=== PATIENT | female | born 1995 | race Caucasian/White ===

== ENCOUNTER 2018-01-26 21:36 | Inpatient (IN) | payer BC ==
[2018-01-26] MEDS ORDERED: Sodium Chloride 0.9% 10 ML Syringe FLUSH PRN (22:28)
[2018-01-26] MEDS ORDERED: Nalbuphine 20 MG/ML 1 ML Syringe IVPUSH PRN (22:28)
[2018-01-26] MEDS ORDERED: Ondansetron 4 MG/2 ML SDV IVPUSH PRN (22:28)
[2018-01-26] MEDS ORDERED: Oxytocin/Lactated Ringers 10 UNIT/1,000 ML BAG IV SCH (22:30)
[2018-01-26] MEDS ORDERED: Lactated Ringers 1,000 ML IV SCH (22:30)
--- NOTE | 2018-01-27 07:55 | PCM.SN ---
- Free Text/Narrative Note: Reina is a 22-year-old 1 now para 1001 white female who is admitted on 01/26/2018 at 40-6/7 weeks gestational age with an SYLVAIN of 01/21/2018. She is admitted in active labor. She had progressed from 3 cm to 4 cm, was salma every 4 minutes and was very uncomfortable. She progressed to approximate 57 m and had artificial rupture membranes with resultant clear amniotic fluid. It then went on to progress to complete cervical dilation by approximately 0640 hrs. on 01/27/2018. She delivered a viable, knox, 3670 g (8 pounds 1.5 ounce) male infant with Apgars of 8 and 9 in a right occiput anterior position over an intact perineum. She is no analgesia during the course of the labor. Stitches were required. Estimated blood loss was 100 mL. The baby was placed on mom's abdomen. The cord was clamped and then was cut by the baby's father Kai. Cord blood was obtained. The umbilical cord had 3 blood vessels. The placenta delivered at 0717 hrs. and a Rosales presentation, appeared intact and complete and was discarded per patient preference. She plans to breast- feed. Condition: Good
[2018-01-27] MEDS ORDERED: Acetaminophen 325 MG Tab PO PRN (07:58)
[2018-01-27] MEDS ORDERED: Benzocaine/Menthol 20%-0.5% Spray 56 GM Canister TOP PRN (07:58)
[2018-01-27] MEDS ORDERED: Witch Hazel Medicated Pads 100/Jar TOP PRN (07:58)
[2018-01-27] MEDS ORDERED: Docusate Sodium 100 MG Cap PO PRN (07:58)
[2018-01-27] MEDS ORDERED: Lanolin 100% Cream 7 GM Tube TOP PRN (07:58)
--- NOTE | 2018-01-27 08:02 | HP ---
DATE OF ADMISSION: 01/26/2018 ADMISSION DIAGNOSIS: 40 and 5/7th week intrauterine , active labor. HISTORY OF PRESENT ILLNESS: The patient is a 22-year-old, 1, para 0, white female, who is admitted with contractions occurring every 3 to 5 minutes, progressive in nature and becoming moderately strong. Her SYLVAIN is 01/21/2018 based upon a certain last menstrual period which started on 04/16/2017 and is supported by 3 ultrasounds. She is presently at 40 and 5/7th weeks' gestational age. She has been salma a good part of the day and has changed her cervix to a dilation of 4 cm which is increased from 3 cm on last evaluation in clinic. 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 Last menstrual period started on 04/16/2017, was definite in timing and occurrence. The patient has cycles q.30 days. Had menarche at age 11. She was using no control at the time of conception. The patient's is supported by 3 ultrasounds done on 07/16/2017, 09/03/2017, and 10/05/2017. The patient had a cardiac echogenic focus noted on ultrasound. The patient was offered Woodruff testing, but declined. She has had a relatively unremarkable . She has been centering patient. She plans to breastfeed. Admit for depression screen on 09/03/2017 was 0/30. She is group B strep negative. She was found to have a low vitamin D level and was supplemented with vitamin D. Tdap was administered on 11/11/2017. The first visit was on 07/16/2017 at 13 weeks' gestational age. She was seen on a regular basis. Her weight gain was from 144.8 pounds up to 164.4 pounds with pre-gravid weight of 140 pounds, giving a weight gain of 124 pounds. Her vital signs were stable throughout the course. Her fundal height growth was appropriate. Last evaluation in clinic showed her cervix to be 3 cm, 95% effaced, very soft, -2, anterior. LABORATORY DATA: laboratory testing shows her blood to be O positive with a negative antibody screen. Her initial labs showed hemoglobin of 13.9 and platelet count of 219. She is rubella immune. RPR is nonreactive. Urine culture was negative. Hepatitis B and HIV assays were both negative. Chlamydia and gonorrhea assays both negative. Her 1-hour GTT was 100. Her second trimester hemoglobin was 13.0 and platelets were 201,000. Group B strep screen was negative. ALLERGIES: Negative. CURRENT MEDICATIONS: vitamins 1 daily. PAST MEDICAL HISTORY: Unremarkable. PAST SURGICAL HISTORY: Unremarkable. FAMILY HISTORY: Mother is alive and well with some depression. Father is alive and well. The patient has 3 sisters who are alive and in generally good health, 1 with labor. Five brothers, alive and well. Maternal grandmother is alive with history of stroke. Maternal grandfather secondary to an [place]. Paternal grandmother secondary to an aneurysm. Paternal grandfather secondary to dementia. There is no bleeding, clotting, anesthesia, or - related problems in the family other than a sister who has Factor V Leiden mutation. SOCIAL HISTORY: The patient is . is Christopher Desilets. 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 She lives in [place], [place]. She does not use any significant amounts of alcohol, drugs, or tobacco. REVIEW OF SYSTEMS: GENERAL: The patient is having contractions, has reported good activity, otherwise has no major concerns. SKIN: Negative. LUNGS/RESPIRATORY: No infectious symptoms or shortness of breath noted. CARDIOVASCULAR: No exercise intolerance or chest pain noted. BREASTS: Changes associated with . The patient does plan to breastfeed. GI TRACT: Negative. TRACT: Increased fundal height consistent with dates. Cervix as described above. NEUROLOGICAL: Negative. MUSCULOSKELETAL: Negative with the exception of minimal edema on occasion. PHYSICAL EXAMINATION: VITAL SIGNS: Last evaluation 01/26/2018 in clinic, blood pressure is 102/60, pregravid weight was 140, weight on last evaluation was 164.4. heart rate was 142. The patient's height is 5 feet 10 inches. Pregravid weight except her body mass index was 20.1. GENERAL: The patient is a well-developed, well-nourished, slender white female in no acute distress. SKIN: Warm and dry without lesions. HEENT, NECK, AND BACK: Within normal limits. LUNGS: Clear with good breath sounds in all lung rico. BREASTS: Exam is deferred having been done at first visit and found to be negative. ABDOMEN: Protuberant with with fundal height of 39 cm. Baby is in a vertex presentation. PELVIS: Cervix on evaluation by nurse is 4 cm, was previously 3 cm, 95% effaced, very soft, -2, anterior. EXTREMITIES AND NEUROLOGICAL: Grossly within normal limits. ASSESSMENT: 1. A 40 and 5/7th week intrauterine , early active labor with cervical change. 2. History of echogenic focus in heart on evaluation x2 with ultrasound. 3. Group B strep screen negative. 4. Rubella immune. 5. The patient plans to breastfeed. 6. The patient is okay with epidural, but would like to use this naturally as possible. 7. Tdap administered on 11/11/2017. PLAN: 1. Anticipate normal spontaneous vaginal delivery. 2. Plan to inform pediatrics about echogenic focus on the heart. 3. Epidural is okay if patient desires. 4. Support decision. MMODAL /[id number]
[2018-01-27] MEDS: Ibuprofen 600 MG Tab PO PRN ×2 (08:07→13:31)
[2018-01-28] MEDS: Prenatal Multivitamin with Calcium/Folic Acid/Iron Tab PO SCH ×2 (00:16→09:18)
--- NOTE | 2018-01-28 14:34 | PCM.DCSUM1 ---
Discharge Summary - Hospital Course Free Text/Narrative:: Reina is a 22-year-old 1 now para 1001 white female who is admitted on 01/26/2018 at 40-6/7 weeks gestational age with an SYLVAIN of 01/21/2018. She is admitted in active labor. She had progressed from 3 cm to 4 cm, was salma every 4 minutes and was very uncomfortable. She progressed to approximate 57 m and had artificial rupture membranes with resultant clear amniotic fluid. It then went on to progress to complete cervical dilation by approximately 0640 hrs. on 01/27/2018. She delivered a viable, knox, 3670 g (8 pounds 1.5 ounce) male infant with Apgars of 8 and 9 in a right occiput anterior position over an intact perineum. She is no analgesia during the course of the labor. Stitches were required. Estimated blood loss was 100 mL. The baby was placed on mom's abdomen. The cord was clamped and then was cut by the baby's father Kai. Cord blood was obtained. The umbilical cord had 3 blood vessels. The placenta delivered at 0717 hrs. and a Rosales presentation, appeared intact and complete and was discarded per patient preference. She plans to breast- feed. patient is done well. She is nursing without problems, voiding well. She is ambulating without concerns and has minimal lochia. Follow-up CBC shows white count 14.86. Her hemoglobin was 11.9. Her platelets are 213,000. She is desiring discharge home. - Discharge Data Discharge Date: 01/28/18 Discharge Disposition: Home, Self-Care 01 Condition: Good - Patient Instructions Diet: Regular Diet as Tolerated (Nursing diet with increase in calories and calcium as directed) Activity: As Tolerated (No intercourse or tampons until bleeding resolves) Driving: Do Not Drive (2 days) Showering/Bathing: May Shower (May take a bath) Notify Provider of: Fever, Increased Pain, Swelling and Redness, Nausea and/or Vomiting - Discharge Plan Home Medications: Home Meds MV-Mn/Iron/FA/Herbal Cmplx#[id number] [Vitamin D3 Complete Caplet] 1 each PO DAILY [History] PNV95/Ferrous Fumarate/FA [ Tablet] 1 tab PO DAILY 01/27/18 [History] Acetaminophen [Tylenol] 650 mg PO Q4H PRN tablet 01/28/18 [Rx] Referrals: Estevan Thacker MD [Primary Care Provider] - (Return to clinicDr. Thacker2 weeks.) - Discharge Summary/Plan Comment DC Time >30 min.: No Discharge Summary/Plan Comment: Discharge instructions: 1. Discharge home 2. Diet, activity and follow-up discussed with patient. Recommend nursing diet with increased calories and calcium. 3. Precautions given concern increased pain, bleeding, temperature, signs/ symptoms of DVT/PE. 4. Medications per home medication was printed, discussed with and given to the patient. 5. Return to clinic-Dr. Thacker-[facility] in 2 weeks. Diagnosis: Term -delivered Condition: Good - Patient Data Vitals - Most Recent: Last Vital Signs Temp 36.7 C 01/28/18 10:39 Pulse 73 01/28/18 10:39 Resp 16 01/28/18 10:39 BP 108/62 01/28/18 10:39 Pulse Ox 98 01/28/18 10:39 Weight - Most Recent: 74.843 kg I&O - Last 24 hours: Intake & Output 01/27/18 01/28/18 01/28/18 22:59 06:59 14:59 Intake Total 240 180 Balance 240 180 Lab Results - Last 24 hrs: Laboratory Results - last 24 hr 01/28/18 Range/Units 06:45 WBC 14.86 H (3.98-10.04) K/mm3 RBC 3.74 L (3.98-5.22) M/mm3 Hgb 11.9 (11.2-15.7) gm/L Hct 34.7 (34.1-44.9) % MCV 92.8 (79.4-94.8) fl MCH 31.8 (25.6-32.2) pg MCHC 34.3 (32.2-35.5) g/dl RDW Std Deviation 43.0 (36.4-46.3) fL Plt Count 213 (182-369) K/mm3 MPV 9.9 (9.4-12.3) fl Med Orders - Current: Current Medications Acetaminophen (Tylenol) 650 mg PO Q4H PRN PRN Reason: mild pain or fever Benzocaine/Menthol (Dermoplast Pain Relief [place]) 0 gm TOP ASDIRECTED PRN PRN Reason: Perineal Comfort Measure Docusate Sodium (Colace) 100 mg PO BID PRN PRN Reason: Constipation Last Admin: 01/27/18 08:08 Dose: 100 mg Emollient Ointment (Lansinoh Hpa) 0 gm TOP ASDIRECTED PRN PRN Reason: Sore Nipples Ibuprofen (Motrin) 600 mg PO Q4H PRN PRN Reason: Mild pain or fever Last Admin: 01/27/18 13:31 Dose: 600 mg Prenat Multivit/Jigger Artisan/Iron/Folic Ac ( Plus Iron) 1 each PO DAILY CHELY Last Admin: 01/28/18 09:18 Dose: 1 each Witch Su (Tucks) 1 pad TOP ASDIRECTED PRN PRN Reason: Hemorrhoid pain Discontinued Medications Lactated Ringer's (Ringers, Lactated) 1,000 mls @ 100 mls/hr IV ASDIRECTED CHELY Oxytocin/Lactated Ringer's (Pitocin In Lr 10 Units/1,000 Ml) 10 unit in 1,000 mls @ 500 mls/hr IV .CONTINUOUS CHELY Nalbuphine HCl (Nubain) 10 mg IVPUSH Q2H PRN PRN Reason: Pain (moderate 4-6) Ondansetron HCl (Zofran) 4 mg IVPUSH Q4H PRN PRN Reason: Nausea/Vomiting Sodium Chloride (Saline Flush) 10 ml FLUSH ASDIRECTED PRN PRN Reason: Keep Vein Open
== END 2018-01-28 18:20 | disposition home or self-care (01) | DRG 560 ==
LOC: JD.OBCHECK 21:36 → JD.OB 21:40 → JD.OBCHECK 22:28 → JD.OB 23:27 → OBSVTOIN 01-27 07:12 → JD.OB 01-27 07:50
PROVIDERS: ADMIT Obstetrics & Gynecology; ATTEND Obstetrics & Gynecology
PROC: 10E0XZZ Delivery of Products of Conception, External Approach (ICD-10-PCS; principal; 2018-01-27)
PROC: 10907ZC Drainage of Amniotic Fluid, Therapeutic from Products of Conception, Via Natural or Artificial Opening (ICD-10-PCS; principal; 2018-01-27)
PROC: 6A550ZT Pheresis of Cord Blood Stem Cells, Single (ICD-10-PCS; principal; 2018-01-27)
DX: O48.0 Post-term pregnancy (principal); Z3A.40 40 weeks gestation of pregnancy; Z37.0 Single live birth
CPT/HCPCS: 36415; 59025; 59409; 85025; 85027; A9270-GY

== ENCOUNTER 2019-11-08 13:45 | Inpatient (IN) | payer BC, OTHER ==
[2019-11-08] MEDS ORDERED: Sodium Chloride 0.9% 10 ML Syringe FLUSH PRN (13:57)
[2019-11-08] MEDS ORDERED: Lactated Ringers 1,000 ML IV SCH (14:00)
[2019-11-08] MEDS ORDERED: Oxytocin/Lactated Ringers 10 UNIT/1,000 ML BAG IV SCH ×2 (14:00)
[2019-11-08] MEDS ORDERED: Ibuprofen 600 MG Tab PO PRN (15:15)
[2019-11-08] MEDS ORDERED: Acetaminophen 325 MG Tab PO PRN ×2 (15:15→22:30)
[2019-11-08] MEDS ORDERED: Witch Hazel Medicated Pads 40/Jar TOP PRN ×2 (15:16→22:30)
[2019-11-08] MEDS ORDERED: Benzocaine/Menthol 20%-0.5% Spray 56 GM Canister TOP PRN ×2 (15:17→22:30)
--- NOTE | 2019-11-08 20:51 | PCM.LDHP ---
L&D History of Present Illness - General Date of Service: 11/08/19 Admit Problem/Dx: Patient Status Order with Admit Dx/Problem 11/08/19 13:57 Patient Status [ADT] Routine Admission Diagnosis/Problem Admission Diagnosis/Problem 11/08/19 20:42 Reina Is a 23-year-old 2 now para 2001 white female was admitted to labor and delivery in active labor with advanced cervical dilation to 8 cm. She went on to deliver prior to the dictation of this H&P. She was with an YSLVAIN of 11/08/2019 placing her presently at 40-0/7 weeks gestational age upon admission. Source of Information: Patient History Limitations: Reports: No Limitations - History of Present Illness Introduction:: Reina Is a 23-year-old 2 now para 2001 white female was admitted to labor and delivery in active labor with advanced cervical dilation to 8 cm. She went on to deliver prior to the dictation of this H&P. She was with an SYLVAIN of 11/08/2019 placing her presently at 40-0/7 weeks gestational age upon admission. She underwent artificial rupture membranes with resultant moderately thick meconium-stained amniotic fluid. heart tones were reassuring. She quickly went to complete cervical dilation and delivered a viable, knox, male infant with Apgars of 8 and 9. The cord was clamped 2 and cut by the baby's father Eladio. [facility] mouth were again bulb suction and DeLee. He was stimulated. Baby did very well. Baby weighed 7 lbs. 1 oz., delivered in a direct occiput anterior position. The length was 19.0 inches. Placenta delivered in aSchultz presentation, appeared intact and complete and was discarded per patient desire. Umbilical cord had 3 vessels. Cord blood was obtained prior to the delivery of placenta. Perineum was intact and no suturing was required. Pitocin was started immediately after delivery of the baby and was running at 500 mL an hour to call. Specimen blood loss 100 mL. Condition: Good. 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 Her SYLVAIN of 11/08/2019 was determined by early ultrasound done on 05/26/2019 and supported by repeat ultrasound on 2018. Patient seen on a regular basis during the course of the with first visit on 05/26/2019. She made good fundal height growth. She also had a weight gain of approximately 25 pounds. Vital signs are stable throughout the course. Her group B strep screen was negative. Her 1 hour glucose tolerance test was abnormal at 137. She had a normal three-hour glucose tolerance test with fasting blood sugar of 82, 1 hour glucose of 129, 2 hour glucose of 102 three-hour glucose of 47. She has a history of acne which mildly worsened during the course of . She declined genetic testing. She plans to breast-feed. Laboratory testing and shows blood to be O+ with negative OR screen. First hemoglobin is 14.4 g/dL platelets 262,000. She is rubella immune. RPR is nonreactive. Urine culture was negative. Hepatitis B surface antigen and HIV assays are both negative. Chlamydia and gonorrhea tests were both negative. Second trimester laboratory testing showed 1 5 g/dL platelets 253 ,000. One-hour GTT was elevated as described above at 137 g/dL. Patient's RPR was repeated on 08/15/2019 was nonreactive. Group B strep screen was negative. Allergies: None Medications: vitamins 1 daily Past medical history: 1. Normal spontaneous vaginal delivery on 01/27/2018 at 40 and 67 weeks gestational age after 15 hours later. Baby weighed 8 lbs. 1 oz. Male infant named Kike Marquez. She had an epidural in labor and delivery. Past surgical history unremarkable Family history: Mother is alive and well but does have some depression. She did have 3 miscarriages. Her father is alive and well. 3 sisters alive and well but one was labor history. 5 brothers alive and well. Maternal grandmother alive but with history of stroke. Maternal grandfather secondary to an [place]. Paternal grandmother secondary to aneurysm. Paternal grandfather secondary dementia. No bleeding, clotting, anesthesia problems noted. One sister with factor V 5 Leiden mutation. Social history: Patient is . She lives in [place]. 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 She does not use any significant most alcohol , drugs or tobacco. Review of systems: In general patient has no complaints septum significant contractions occurring every 3-5 minutes.. Skin: Negative Lungs: No infectious symptoms or shortness of breath Cardiovascular: No chest pain or exercise intolerance Breasts: Changes associated . Patient plans to breast-feed. GI: Negative : Body habitus changes associated . Musculoskeletal: Negative Neurological: Negative In general the patient is well-developed, well-nourished, pleasant female of stated age in no acute distress. On last evaluation clinic patient's blood pressure 120/62 weight is 162.2 pounds with a prepregnancy weight of 137 pounds. Her heart rate is 134. Her height is 5 feet 10 inches. Prepregnancy body mass index is 18.7. Skin is warm dry without lesions. HEENT, neck and back within normal limits. Lungs are clear with good breath sounds in all lung rico. Cardiovascular exam shows regular and rhythm without murmurs. Abdomen is avid with last fundal height of 39 cm baby in vertex presentation Genital exam per digital on last evaluation clinic 10/26/2019 shows cervix to be 1 symmetric, 90% effaced, soft, very posterior, -2 station.. Extremities and neurological exam are grossly within normal limits. - Related Data Allergies/Adverse Reactions: Allergies Allergy/AdvReac Type Severity Reaction Status Date / Time No Known Allergies Allergy Verified 11/08/19 15:15 Home Medications: Home Meds Mv-Mn/Iron/Folic Acid/Herb 190 [Vitamin D3 Complete Caplet] 1 each PO DAILY [History] Pnv No.95/Ferrous Fum/Folic AC [ Tablet] 1 tab PO DAILY 01/27/18 [ History] Acetaminophen [Tylenol] 650 mg PO Q4H PRN tablet 01/28/18 [Rx] Past Medical History - Past Health History Medical/Surgical History: Denies Medical/Surgical History JAWBONE PULLER History: Reports: - Past Surgical History HEENT Surgical History: Reports: Oral Surgery Other HEENT Surgeries/Procedures: [employer] teeth in high school Social & Family History - Family History Family Medical History: Noncontributory - Tobacco Use Smoking Status *Q: Never Smoker Second Hand Smoke Exposure: No - Caffeine Use Caffeine Use: Reports: None - Recreational Drug Use Recreational Drug Use: No H&P Review of Systems - Review of Systems: Review Of Systems: See Below L&D Exam - Exam Exam: See Below - Vital Signs Vital Signs: Last Vital Signs Temp 36.8 C 11/08/19 13:57 Pulse 71 11/08/19 15:00 Resp 16 11/08/19 13:57 BP 117/70 11/08/19 15:00 Pulse Ox Weight: 73.936 kg - Patient Data Lab Results Last 24 hrs: Laboratory Results - last 24 hr 11/08/19 Range/Units 14:38 WBC 12.03 H (3.98-10.04) K/mm3 RBC 4.08 (3.98-5.22) M/mm3 Hgb 12.8 (11.2-15.7) gm/dl Hct 37.5 (34.1-44.9) % MCV 91.9 (79.4-94.8) fl MCH 31.4 (25.6-32.2) pg MCHC 34.1 (32.2-35.5) g/dl RDW Std Deviation 42.2 (36.4-46.3) fL Plt Count 207 (182-369) K/mm3 MPV 9.7 (9.4-12.3) fl Neut % (Auto) 84.2 H (34.0-71.1) % Lymph % (Auto) 8.6 L (19.3-51.7) % [place] % (Auto) 6.7 (4.7-12.5) % Eos % (Auto) 0.1 L (0.7-5.8) Baso % (Auto) 0.2 (0.1-1.2) % Neut # (Auto) 10.13 H (1.56-6.13) K/mm3 Lymph # (Auto) 1.03 L (1.18-3.74) K/mm3 [place] # (Auto) 0.81 H (0.24-0.36) K/mm3 Eos # (Auto) 0.01 L (0.04-0.36) K/mm3 Baso # (Auto) 0.02 (0.01-0.08) K/mm3 Manual Slide Review Normal smear Result Diagrams: 11/08/19 14:38 Problem List Initiated/Reviewed/Updated: Yes Orders Last 24hrs: Active Orders 24 hr Category Date Time Status Patient Status Manage Transfer [TRANSFER] Routine ADT 11/08/19 20:39 Ordered Patient Status [ADT] Routine ADT 11/08/19 13:57 Active Activity as Tolerated [RC] PFP Care 11/08/19 13:57 Active Communication Order [RC] ASDIRECTED Care 11/08/19 13:57 Active Heart Tones [RC] ASDIRECTED Care 11/08/19 13:58 Active Notify Provider [RC] PFP Care 11/08/19 13:57 Active Notify Provider [RC] PRN Care 11/08/19 13:57 Active Peripheral IV Care [RC] . DIRECTED Care 11/08/19 13:58 Active Vital Signs [RC] PER UNIT ROUTINE Care 11/08/19 13:57 Active Regular Diet [DIET] Diet 11/08/19 Lunch Active RAPID PLASMA REAGIN,RPR [CHEM] Routine Lab 11/08/19 14:38 Received Acetaminophen [Tylenol] Med 11/08/19 15:15 Active 650 mg PO Q4H PRN Benzocaine/Menthol [Dermoplast Pain Relief [place]] Med 11/08/19 15:17 Active 0 gm TOP ASDIRECTED PRN Ibuprofen [Motrin] Med 11/08/19 15:15 Active 600 mg PO Q4H PRN Lactated Ringers [Ringers, Lactated] 1,000 ml Med 11/08/19 14:00 Active IV ASDIRECTED Oxytocin/Lactated Ringers [Pitocin in LR 10 Units/1,000 Med 11/08/19 14:00 Active ML] 10 unit in 1,000 ml IV .CONTINUOUS Oxytocin/Lactated Ringers [Pitocin in LR 10 Units/1,000 Med 11/08/19 14:00 Active ML] 10 unit in 1,000 ml IV TITRATE Sodium Chloride 0.9% [Saline Flush] Med 11/08/19 13:57 Active 10 ml FLUSH ASDIRECTED PRN bashir Tejada [Tucks] Med 11/08/19 15:16 Active 1 pad TOP ASDIRECTED PRN Electronic Heart Tones Ext w TOCO [WOMSER] Oth 11/08/19 13:57 Ordered Routine Electronic Heart Tones Internal [WOMSER] Per Unit Oth 11/08/19 13:57 Ordered Routine Peripheral IV Insertion Adult [OM.PC] Routine Oth 11/08/19 13:57 Ordered Resuscitation Status Routine Resus Stat 11/08/19 13:57 Ordered Medication Orders Acetaminophen (Tylenol) 650 mg PO Q4H PRN PRN Reason: Pain Benzocaine/Menthol (Dermoplast Pain Relief [place]) 0 gm TOP ASDIRECTED PRN PRN Reason: perineal pain Lactated Ringer's (Ringers, Lactated) 1,000 mls @ 100 mls/hr IV ASDIRECTED CHELY Oxytocin/Lactated Ringer's (Pitocin In Lr 10 Units/1,000 Ml) 10 unit in 1,000 mls @ 12 mls/hr IV TITRATE CHELY; Protocol Oxytocin/Lactated Ringer's (Pitocin In Lr 10 Units/1,000 Ml) 10 unit in 1,000 mls @ 100 mls/hr IV .CONTINUOUS CHELY Last Infusion: 11/08/19 17:30 Dose: 0 mls/hr Admin: 11/08/19 14:17 Dose: 500 mls/hr Ibuprofen (Motrin) 600 mg PO Q4H PRN PRN Reason: Pain Sodium Chloride (Saline Flush) 10 ml FLUSH ASDIRECTED PRN PRN Reason: Keep Vein Open Witch Su (Tucks) 1 pad TOP ASDIRECTED PRN PRN Reason: perineal pain Assessment/Plan Comment:: 1. 40-0/7 week intrauterine , spontaneous labor, rapid labor with advanced cervical dilation of 8 cm upon delivered, delivered prior to dictation of this history and physical. 2. Group B strep screen negative. 3. Patient plans to breast-feed 4. Patient desires natural labor. 5. Patient is rubella immune. Received her hepatitis A, hepatitis B, meningococcal immunizations in 2006, 1998 and 2010 respectively. Plan: 1. Patient has delivered. We'll proceed with routine care 2. Support breast-feeding decision. 3. Maintain IV Pitocin after delivery until stable.
--- NOTE | 2019-11-08 21:13 | PCM.SN ---
- Free Text/Narrative Note: Delivery note: Reina Is a 23-year-old 2 now para 2002 white female was admitted to labor and delivery in active labor with advanced cervical dilation to 8 cm. She went on to deliver prior to the dictation of this H&P. She was with an SYLVAIN of 11/08/2019 placing her presently at 40-0/7 weeks gestational age upon admission. She underwent artificial rupture membranes with resultant moderately thick meconium-stained amniotic fluid. heart tones were reassuring. She quickly went to complete cervical dilation and delivered a viable, knox, male infant with Apgars of 8 and 9. The cord was clamped 2 and cut by the baby's father Eladio. Baby was taken to the [facility] and nose mouth were again bulb suction and DeLee. He was stimulated. Baby did very well. Baby weighed 7 lbs. 1 oz., delivered in a direct occiput anterior position. The length was 19.0 inches. Placenta delivered in aSchultz presentation, appeared intact and complete and was discarded per patient desire. Umbilical cord had 3 vessels. Cord blood was obtained prior to the delivery of placenta. Perineum was intact and no suturing was required. Pitocin was started immediately after delivery of the baby and was running at 500 mL an hour to call. Specimen blood loss 100 mL. Condition: Good.
[2019-11-08] MEDS ORDERED: Docusate Sodium 100 MG Cap PO PRN (22:30)
[2019-11-09] MEDS: Ibuprofen 600 MG Tab PO PRN ×2 (06:32→14:10)
[2019-11-09] MEDS ORDERED: Prenatal Multivitamin with Calcium/Folic Acid/Iron Tab PO SCH (09:00)
--- NOTE | 2019-11-10 06:50 | PCM.DCSUM1 ---
Discharge Summary - Hospital Course Free Text/Narrative:: Reina Is a 23-year-old 2 now para 2004 white female was admitted to labor and delivery in active labor with advanced cervical dilation to 8 cm. She went on to deliver prior to the dictation of this H&P. She was with an SYLVAIN of 11/08/2019 placing her presently at 40-0/7 weeks gestational age upon admission. She underwent artificial rupture membranes with resultant moderately thick meconium-stained amniotic fluid. heart tones were reassuring. She quickly went to complete cervical dilation and delivered a viable, knox, male infant with Apgars of 8 and 9. The cord was clamped 2 and cut by the baby's father Eladio. [facility] mouth were again bulb suction and DeLee. He was stimulated. Baby did very well. Baby weighed 7 lbs. 1 oz., delivered in a direct occiput anterior position. The length was 19.0 inches. Placenta delivered in aSchultz presentation, appeared intact and complete and was discarded per patient desire. Umbilical cord had 3 vessels. Cord blood was obtained prior to the delivery of placenta. Perineum was intact and no suturing was required. Pitocin was started immediately after delivery of the baby and was running at 500 mL an hour to call. Specimen blood loss 100 mL. In the period the baby has had some mild respiratory concerns which are felt to be secondary to meconium-stained amniotic fluid but in general is doing well. Mom is having no concerns. Vital signs stable, patient is afebrile, patient has minimal lochia, was voiding well and ambulating without concerns. Patient desires discharge today. Condition: Good. Diagnosis: Stroke: No - Discharge Data Discharge Date: 11/10/19 Discharge Disposition: Home, Self-Care 01 Condition: Good - Referral to Home Health Primary Care Physician: Estevan Thacker MD - Patient Instructions Diet: Regular Diet as Tolerated (Nursing diet with increased calcium and calories as recommended) Activity: As Tolerated (No intercourse or tampons until bleeding resolves) Driving: May Drive Today Showering/Bathing: May Shower (May take a bath) Notify Provider of: Fever, Increased Pain, Swelling and Redness, Nausea and/or Vomiting - Discharge Plan Home Medications: Home Meds Mv-Mn/Iron/Folic Acid/Herb 190 [Vitamin D3 Complete Caplet] 1 each PO DAILY [History] Pnv No.95/Ferrous Fum/Folic AC [ Tablet] 1 tab PO DAILY 01/27/18 [ History] Acetaminophen [Tylenol] 650 mg PO Q4H PRN tablet 11/10/19 [Rx] Ibuprofen [Motrin] 600 mg PO Q4H PRN tablet 11/10/19 [Rx] Referrals: Estevan Thacker MD [Primary Care Provider] - (Return to clinicDr. Thacker or Lorna olivia, nurse practitioner,) - Discharge Summary/Plan Comment DC Time >30 min.: No Discharge Summary/Plan Comment: Discharge instructions: 1. Discharge home 2. Diet, activity and follow-up discussed with patient. Recommend nursing diet with increased calories and calcium. 3. Precautions given concern increased pain, bleeding, temperature, signs/ symptoms of DVT/PE. 4. Medications per home medication was printed, discussed with and given to the patient. 5. Return to clinic-Dr. Thacker or Lorna olivia, nurse practitioner, [facility] in 2 weeks. Diagnosis: Term -delivered Condition: Good - Patient Data Vitals - Most Recent: Last Vital Signs Temp 36.5 C 11/09/19 08:19 Pulse 68 11/09/19 22:23 Resp 15 11/09/19 22:23 BP 120/87 11/09/19 22:23 Pulse Ox 100 11/09/19 22:23 Weight - Most Recent: 73.936 kg I&O - Last 24 hours: Intake & Output 11/09/19 11/09/19 11/10/19 14:59 22:59 06:59 Intake Total 600 Balance 600 Med Orders - Current: Current Medications Acetaminophen (Tylenol) 650 mg PO Q4H PRN PRN Reason: mild pain or fever Benzocaine/Menthol (Dermoplast Pain Relief [place]) 0 gm TOP ASDIRECTED PRN PRN Reason: Perineal Comfort Measure Docusate Sodium (Colace) 100 mg PO BID PRN PRN Reason: Constipation Ibuprofen (Motrin) 600 mg PO Q4H PRN PRN Reason: Mild pain or fever Last Admin: 11/09/19 14:10 Dose: 600 mg Prenat Multivit/Transformation Lead/Iron/Folic Ac ( Plus Iron) 1 each PO DAILY [facility] Last Admin: 11/09/19 08:19 Dose: 1 each Marifer Bleu (Tucks) 1 pad TOP ASDIRECTED PRN PRN Reason: Perineal Comfort Measure Discontinued Medications Acetaminophen (Tylenol) 650 mg PO Q4H PRN PRN Reason: Pain Benzocaine/Menthol (Dermoplast Pain Relief [place]) 0 gm TOP ASDIRECTED PRN PRN Reason: perineal pain Lactated Ringer's (Ringers, Lactated) 1,000 mls @ 100 mls/hr IV ASDIRECTED CHELY Oxytocin/Lactated Ringer's (Pitocin In Lr 10 Units/1,000 Ml) 10 unit in 1,000 mls @ 12 mls/hr IV TITRATE CHELY; Protocol Oxytocin/Lactated Ringer's (Pitocin In Lr 10 Units/1,000 Ml) 10 unit in 1,000 mls @ 100 mls/hr IV .CONTINUOUS CHELY Last Infusion: 11/08/19 17:30 Dose: Infused Ibuprofen (Motrin) 600 mg PO Q4H PRN PRN Reason: Pain Sodium Chloride (Saline Flush) 10 ml FLUSH ASDIRECTED PRN PRN Reason: Keep Vein Open Marifer Blue (Tucks) 1 pad TOP ASDIRECTED PRN PRN Reason: perineal pain
--- NOTE | 2019-11-10 07:01 | PCM.SN ---
- Free Text/Narrative Note: day #1: 11/09/2019 Patient is doing well in the period. Minimal lochia, voiding well, ambulated without problems. Nursing without concerns. Patient is afebrile, vital signs are stable Abdomen is flat, soft, uterus is below the umbilicus and is firm and nontender. Legs are nontender. Assessment: recovery going well. Plan: Routine care. Patient be discharged home within the next 24- 48 hours.
== END 2019-11-10 09:50 | disposition home or self-care (01) | DRG 807 ==
LOC: UNDOADMOB 13:45 → JD.OBCHECK 13:45 → JD.OB 13:45 → JD.OBCHECK 13:57 → JD.OB 13:57 → EDSTATUS 13:59 → OBSVTOIN 14:15 → JD.OB 14:16
PROVIDERS: ADMIT Obstetrics & Gynecology; ATTEND Obstetrics & Gynecology
PROC: 10E0XZZ Delivery of Products of Conception, External Approach (ICD-10-PCS; principal; 2019-11-08)
PROC: 10907ZC Drainage of Amniotic Fluid, Therapeutic from Products of Conception, Via Natural or Artificial Opening (ICD-10-PCS; 2019-11-08)
DX: O48.0 Post-term pregnancy (principal); Z37.0 Single live birth; Z3A.40 40 weeks gestation of pregnancy; O77.0 Labor and delivery complicated by meconium in amniotic fluid
CPT/HCPCS: 36415; 59025; 59409; 85025; 86592; A9270-GY; J2590

== ENCOUNTER 2023-04-03 05:08 | Inpatient (IN) | payer BC ==
[2023-04-03] MEDS ORDERED: Penicillin G Potassium 5 MILLUNITS in Sodium Chloride 0.9% 100 ML IV SCH (05:30)
[2023-04-03] MEDS ORDERED: Lactated Ringers 1,000 ML IV SCH (05:45)
[2023-04-03] MEDS ORDERED: Oxytocin/Lactated Ringers 10 UNIT/1,000 ML BAG IV SCH (06:00)
[2023-04-03 06:03] LABS: HEMATOCRIT 40.3 % (34.1-44.9); HEMOGLOBIN 14.3 gm/dl (11.2-15.7); MEAN CORPUSCULAR HEMOGLOBIN 31.8 pg (25.6-32.2); MEAN CORPUSCULAR HGB CONC 35.5 g/dl (32.2-35.5); MEAN CORPUSCULAR VOLUME 89.6 fl (79.4-94.8); MEAN PLATELET VOLUME 10.1 fl (9.4-12.3); PLATELET COUNT,PLT 222 K/mm3 (182-369); WHITE BLOOD CELL COUNT,WBC 11.67 K/mm3 (3.98-10.04)
[2023-04-03] MEDS ORDERED: Benzocaine/Menthol 20%-0.5% Spray 78 GM Cannister TOP PRN (09:00)
[2023-04-03] MEDS ORDERED: Ibuprofen 600 MG Tab PO PRN (09:00)
[2023-04-03] MEDS ORDERED: Acetaminophen 325 MG Tab PO PRN (09:00)
[2023-04-03] MEDS ORDERED: Witch Hazel Medicated Pads 40/Jar TOP PRN (09:00)
== END 2023-04-05 08:45 | disposition home or self-care (01) | DRG 560 ==
LOC: JD.OBCHECK 05:08 → JD.OB 05:11 → JD.OBCHECK 05:43 → JD.OB 06:42 → OBSVTOIN 06:50 → JD.OB 06:51
PROVIDERS: ADMIT Family Medicine; ATTEND Family Medicine
PROC: 10E0XZZ Delivery of Products of Conception, External Approach (ICD-10-PCS; principal; 2023-04-03)
PROC: 10907ZC Drainage of Amniotic Fluid, Therapeutic from Products of Conception, Via Natural or Artificial Opening (ICD-10-PCS; 2023-04-03)
DX: O48.0 Post-term pregnancy (principal); O99.824 Streptococcus B carrier state complicating childbirth; O99.892 Other specified diseases and conditions complicating childbirth; N13.30 Unspecified hydronephrosis; O69.81X0 Labor and delivery complicated by cord around neck, without compression, not applicable or unspecified; Z37.0 Single live birth; Z3A.41 41 weeks gestation of pregnancy
CPT/HCPCS: 36415; 59025; 59409; 85027; J2540; J2590; J3490; J7120

== ENCOUNTER 2025-02-27 14:54 | Inpatient (IN) | payer BC ==
[2025-02-27] MEDS ORDERED: Nalbuphine 10 MG/1 ML Vial IVPUSH PRN (15:21)
[2025-02-27] MEDS ORDERED: Sodium Chloride 0.9% 10 ML Syringe FLUSH PRN (15:21)
[2025-02-27] MEDS ORDERED: Ondansetron 4 MG/2 ML SDV IVPUSH PRN (15:21)
[2025-02-27] MEDS ORDERED: Lactated Ringers 1,000 ML IV SCH (15:30)
[2025-02-27] MEDS ORDERED: Benzocaine/Menthol 20%-0.5% Spray 78 GM Cannister TOP PRN (18:14)
[2025-02-27] MEDS ORDERED: Witch Hazel Medicated Pads 40/Jar TOP PRN (18:14)
[2025-02-27] MEDS ORDERED: Sodium Chloride 0.9% 10 ML Syringe FLUSH SCH (21:00)
== END 2025-02-28 15:35 | disposition home or self-care (01) | DRG 560 ==
LOC: JD.OB 14:54 → JD.OBCHECK 14:54 → JD.OB 14:55 → OBSVTOIN 14:55 → JD.OB 14:56
PROVIDERS: ADMIT Family Medicine; ATTEND Family Medicine
PROC: 10E0XZZ Delivery of Products of Conception, External Approach (ICD-10-PCS; principal; 2025-02-27)
DX: O48.0 Post-term pregnancy (principal); Z3A.40 40 weeks gestation of pregnancy; Z37.0 Single live birth; Z79.899 Other long term (current) drug therapy
CPT/HCPCS: 59409; A9270-GY